=== PATIENT | male | born 1950 | race Caucasian/White ===

== ENCOUNTER 2021-09-20 12:28 | Emergency (ER) | payer MEDICARE, MEDICAID, SELFPAY ==
[2021-09-20] VITALS (44 sets, daily range): BP systolic 114–160; BP diastolic 65–79; PULSE 85; RESP 16; TEMP 36.9; O2SAT 97–100
--- NOTE | 2021-09-20 12:40 | W.ED.GENADLT ---
HPI - General Adult General: Chief complaint: General Medical Stated complaint: losing blood, sent by Dr Mustafa Seen by Provider: 09/20/21 12:39 History of Present Illness: HPI narrative: Mr. Qureshi is a 71-year-old gentleman with history of hypertension, COPD, and somewhat unclear vascular procedure who presents to the emergency department due to abnormal lab. He was seen by Dr. Guajardo who is his primary care provider and had labs drawn which showed a low hemoglobin. He denies known blood loss. He has noticed over the past 3 to 4 weeks increase shortness of breath from baseline, mild to moderate lightheadedness exacerbated by position change. And generalized malaise. He denies similar episodes in the past. No dark tarry stools. No other known specific exacerbating or alleviating factors Review of Systems General: Reports: 10 or more systems reviewed and unremarkable except in HPI and below Physical Exam Narrative: EXAM NARRATIVE: GENERAL/CONSTITUTIONAL - well-appearing. No acute distress. Eyes -no scleral icterus, no conjunctival injection ENMT - Atraumatic external nose and ears. Moist mucous membranes NECK - supple. trachea midline CARDIOVASCULAR - regular rate and rhythm. Peripheral pulses 2+ and equal RESPIRATORY -clear to auscultation bilaterally. ABDOMEN/GI - Nontender/Nondistended. Guaiac negative. MSK - Extremities without obvious deformity or tenderness to palpation SKIN - Warm, Dry NEURO - alert and appropriately oriented. Moves all extremities equally. Course ED course: - Patient was seen and evaluated by me at bedside - Patient placed on cardiac monitors, IV access obtained - Initial evaluation notable for no acute distress, nontoxic appearance. - Labs notable for minimal leukocytosis, hemoglobin normocytic at 8.1. Creatinine is elevated at 2.4 - Imaging notable for negative chest x-ray -I attempted to contact Dr. Guajardo however was unable to get a hold of him, per Dr. Guajardo's nurse patient's last labs were in October 2019, hemoglobin 17, creatinine 1.18. - Upon serial reexamination after treatment the patient was similar - Based on patient history, evaluation, labs, and imaging as interpreted the most likely cause of the patient's condition is unclear. Challenging situation given interpretation of lab values. Certainly the change from 2019 is concerning however the timeline of changes unclear. Guaiac study is negative and patient is not tachycardic or vitally unstable. I offered admission for further evaluation however the patient declined admission and wishes to follow-up with his primary care provider. Based on my interaction with the patient he is competent to make his own medical decisions. This is probably a reasonable decision as I see no source of bleeding and, as stated, the chronicity is unclear. No indication for transfusion at this time. - The results of ED evaluation were discussed with the patient including shared decision-making. followup plan and return precautions discussed. The patient verbalized understanding and felt safe for discharge. - Patient discharged in satisfactory condition. Vital Signs: Vital signs: Vital Signs Temperature 98.5 F 09/20/21 12:35 Pulse Rate 85 09/20/21 12:35 Respiratory Rate 16 09/20/21 12:35 Blood Pressure 137/72 09/20/21 16:30 Pulse Oximetry 99 09/20/21 16:20 MDM - General Adult Medical Records: Attestation: I reviewed the patient's medical records. Lab Data: Attestation: I reviewed the patient's lab results. Labs: Lab Results 09/20/21 09/20/21 09/20/21 12:55 12:55 12:55 WBC 10.1 10^3/uL H 10 ^3/uL (4.0-10.0) RBC 3.02 10^6/uL L 10 ^6/uL (4.1-5.3) Hgb 8.1 g/dL L g/dL (11.7-16.6) Hct 25.9 % L % (42.0-52.0) MCV 85.8 fl fl (80-94) MCH 26.8 pg L pg (28.0-34.0) MCHC 31.3 g/dL g/dL (30.0-36.0) RDW 14.7 % % (12.1-15.1) Plt Count 251 10^3/cmm 10^3 /cmm (130-400) MPV 12.2 fL H fL (7.4-10.4) Neut % (Auto) 63.9 % % Lymph % (Auto) 20.4 % % [place] % (Auto) 8.8 % % Eos % (Auto) 6.0 % % Baso % (Auto) 0.4 % % Neut # (Auto) 6.44 10^3/uL 10^3 /uL (1.8-7.7) Lymph # (Auto) 2.1 10^3/uL 10^3/ uL (0.8-4.8) [place] # (Auto) 0.9 10^3/uL 10^3/ uL (0.2-0.9) Eos # (Auto) 0.6 10^3/uL 10^3/ uL (0.0-0.8) Baso # (Auto) 0.0 10^3/uL 10^3/ uL (0.0-0.1) Nucleated RBC % (a uto) 0 % % Nucleated RBCs # 0.0 /100WBC /100W BC Sodium 132 mmol/L L mmol /L (136-145) Potassium 4.2 mmol/L mmol/L (3.5-5.1) Chloride 100 mmol/L mmol/L (98-107) Carbon Dioxide 22 mmol/L mmol/L (22-29) Anion Gap 14.2 (5-19) BUN 31 mg/dL H mg/dL (8-23) Creatinine 2.4 mg/dL H mg/dL (0.7-1.2) GFR Calculation Not Reportable Glucose 119 mg/dL H mg/dL (65-115) Calculated Osmolal ity 282 mOsm/kg L mOs m/kg (285-295) Calcium 9.4 mg/dL mg/dL (8.5-10.5) Iron TIBC % Saturation Unsat Iron Binding Transferrin Ferritin Total Bilirubin 0.2 mg/dL mg/dL (0.15-1.2) AST 16 U/L U/L (0-40) ALT 9 U/L U/L (0-41) Alkaline Phosphata se 87 IU/L IU/L (40-130) Troponin T Baselin e 30 ng/L H ng/L (0-15) Troponin T 120 Min [place] Troponin T NT-Pro-B Natriuret Pep 669 pg/mL H pg/mL (0-125) Total Protein 6.9 g/dL g/dL (6.6-8.7) Albumin 3.6 g/dL g/dL (3.5-5.2) Globulin 3.3 g/dL g/dL (1.3-4.6) TSH 3.26 uIU/mL uIU/m L (0.27-4.20) Urine Color Urine Appearance Urine pH Ur Specific Gravit y Urine Protein Urine Glucose (UA) Urine Ketones Urine Blood Urine Nitrate Urine Bilirubin Urine Urobilinogen Ur Leukocyte Edepa ase Urine RBC Urine WBC Ur Squamous Epith Cells Amorphous Sediment Urine Bacteria Blood Type Rho(D) Type Antibody Screen 09/20/21 09/20/21 09/20/21 12:55 12:55 13:59 WBC RBC Hgb Hct MCV MCH MCHC RDW Plt Count MPV Neut % (Auto) Lymph % (Auto) [place] % (Auto) Eos % (Auto) Baso % (Auto) Neut # (Auto) Lymph # (Auto) [place] # (Auto) Eos # (Auto) Baso # (Auto) Nucleated RBC % (a uto) Nucleated RBCs # Sodium Potassium Chloride Carbon Dioxide Anion Gap BUN Creatinine GFR Calculation Glucose Calculated Osmolal ity Calcium Iron 27 ug/dL L ug/dL (59-158) TIBC 294 mcg/dl mcg/dl % Saturation 9.1 % L % (20-50) Unsat Iron Binding 267 ug/dL ug/dL (112-347) Transferrin 227 mg/dL mg/dL (200-360) Ferritin 22 ng/mL L ng/mL (30-400) Total Bilirubin AST ALT Alkaline Phosphata se Troponin T Baselin e Troponin T 120 Min [place] Troponin T NT-Pro-B Natriuret Pep Total Protein Albumin Globulin TSH Urine Color Yellow (Yellow) Urine Appearance Clear (CLEAR) Urine pH 7 (5-7) Ur Specific Gravit y 1.010 (1.005-1.030) Urine Protein 3+ H (Negative) Urine Glucose (UA) Trace H (Normal) Urine Ketones Negative (Negative) Urine Blood Neg (Negative) Urine Nitrate Negative (Negative) Urine Bilirubin Neg (Negative) Urine Urobilinogen Norm mg/dL mg/dL (Negative) Ur Leukocyte Deepa ase Negative (Negative) Urine RBC 0-4 /hpf H /hpf (0-2) Urine WBC 0-4 /hpf H /hpf (0-5) Ur Squamous Epith Cells 0-4 /hpf H /hpf (0-5) Amorphous Sediment Not Reportable Urine Bacteria Trace /hpf /hpf (NONE) Blood Type O Positive Rho(D) Type Positive Antibody Screen Negative 09/20/21 15:00 WBC RBC Hgb Hct MCV MCH MCHC RDW Plt Count MPV Neut % (Auto) Lymph % (Auto) [place] % (Auto) Eos % (Auto) Baso % (Auto) Neut # (Auto) Lymph # (Auto) [place] # (Auto) Eos # (Auto) Baso # (Auto) Nucleated RBC % (a uto) Nucleated RBCs # Sodium Potassium Chloride Carbon Dioxide Anion Gap BUN Creatinine GFR Calculation Glucose Calculated Osmolal ity Calcium Iron TIBC % Saturation Unsat Iron Binding Transferrin Ferritin Total Bilirubin AST ALT Alkaline Phosphata se Troponin T Baselin e Troponin T 120 Min [place] 28.80 ng/L H ng/L (0-15) Delta Troponin T -1.20 ABS# L ABS# (0-10) NT-Pro-B Natriuret Pep Total Protein Albumin Globulin TSH Urine Color Urine Appearance Urine pH Ur Specific Gravit y Urine Protein Urine Glucose (UA) Urine Ketones Urine Blood Urine Nitrate Urine Bilirubin Urine Urobilinogen Ur Leukocyte Deepa ase Urine RBC Urine WBC Ur Squamous Epith Cells Amorphous Sediment Urine Bacteria Blood Type Rho(D) Type Antibody Screen EKG Data^: EKG 1: Attestation: I personally reviewed and interpreted this EKG as follows: EKG interpretation date: 09/20/21 EKG interpretation time: 13:12 Interpretation: Twelve-lead EKG shows a regular rhythm at a rate of 78. SC interval 151, QRS duration 92, QTc 399. Normal axis. Interpretation: Sinus rhythm. Nonspecific ST segment abnormalities. Computer generated interpretation: Chest X-Ray 09/20/21 12:52 Impression: Atherosclerosis. EKG 2: Attestation: I personally reviewed and interpreted this EKG as follows: EKG interpretation date: 09/20/21 EKG interpretation time: 15:09 Interpretation: Twelve-lead EKG shows a regular rhythm at a rate of 79. SC interval 131, QRS duration 98, QTc 398. Normal axis. Interpretation: Sinus rhythm. Nonspecific ST segment abnormalities. Similar to prior. Computer generated interpretation: Chest X-Ray 09/20/21 12:52 Impression: Atherosclerosis. Discharge Plan Discharge Patient Disposition: Home Clinical Impression: Anemia, Creatinine elevation Condition: Fair Prescriptions: No Action multivitamin Tablet 1 tab PO DAILY RF: 0 magnesium 500 mg Tablet 500 mg PO QAM RF: 0 amlodipine 5 mg tablet 5 mg PO QAM RF: 0 Aspir-81 81 mg Tablet,Delayed Release (Dr/Ec) 81 mg PO QAM RF: 0 Ventolin HFA 90 mcg/actuation HFA aerosol inhaler 2 puff INHALATION Q4H PRN (Reason: Shortness Of Breath) RF: 0 valsartan-hydrochlorothiazide 320-25 mg tablet 1 tab PO QAM RF: 0 Breo Ellipta 200-25 mcg/dose blister with device 1 inh INHALATION QAM RF: 0 Discharge Orders: Discharge ED (Routine); Ordered 09/20/21 Ordered By: Antony Chaudhari Discharge Diet: Usual diet Discharge Activity: Resume usual activity Patient Instructions: Anemia (ED), Impaired Kidney Function (ED) Activity Restrictions/Additional Instructions: Thank you for visiting the emergency department. You were seen and evaluated for abnormal labs. The exact cause of abnormal labs is unclear as is exactly how quickly they have changed. As discussed, the safest option is to admit you however you are declining admission at this time, please follow-up with your primary care provider as soon as possible. You do require further investigation regarding kidney function and cause of your anemia. Please return to the emergency department for worsening symptoms, decreased urine output, shortness of breath, chest pain, or anything else that you are concerned about and feel needs emergency department evaluation. 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
--- NOTE | 2021-09-20 12:52 | XR_ITS ---
WS: [id number] Portable AP upright chest, 09/20/2021 Clinical Data: sob Comparison: PA and lateral chest, 05/18/2015. Findings: No nodules, masses or effusions are seen. The heart is normal. The pulmonary vascularity is not increased. No pneumonia or pneumothorax is seen. The aortic arch and descending thoracic aorta s how tortuosity. XR/XR chest 1V portable [id number] Impression: Atherosclerosis.
[2021-09-20 13:06] LABS: Basophils % 0.4 %; Eosinophils # 0.6 10^3/uL (0.0-0.8); Hematocrit 25.9 % (42.0-52.0); Hemoglobin 8.1 g/dL (11.7-16.6); Lymphocytes # 2.1 10^3/uL (0.8-4.8); Lymphocytes % 20.4 %; Mean Corpuscular HGB Conc 31.3 g/dL (30.0-36.0); Mean Corpuscular Hemoglobin 26.8 pg (28.0-34.0); Mean Corpuscular Volume 85.8 fl (80-94); Mean Platelet Volume 12.2 fL (7.4-10.4); Monocytes # 0.9 10^3/uL (0.2-0.9); Monocytes % 8.8 %; Neutrophils # 6.44 10^3/uL (1.8-7.7); Neutrophils % 63.9 %; Nucleated Red Blood Cells % 0 %; Platelet Count 251 10^3/cmm (130-400); Red Blood Count 3.02 10^6/uL (4.1-5.3); Red Cell Distribution Width 14.7 % (12.1-15.1); White Blood Count 10.1 10^3/uL (4.0-10.0)
[2021-09-20 13:29] LABS: Troponin(5th) Baseline 30 ng/L (0-15)
[2021-09-20 13:36] LABS: Alanine Aminotransferase 9 U/L (0-41); Albumin Level 3.6 g/dL (3.5-5.2); Alkaline Phosphatase 87 IU/L (40-130); Aspartate Amino Transferase 16 U/L (0-40); Blood Urea Nitrogen 31 mg/dL (8-23); Calcium 9.4 mg/dL (8.5-10.5); Carbon Dioxide 22 mmol/L (22-29); Chloride 100 mmol/L (98-107); Globulin 3.3 g/dL (1.3-4.6); Glucose 119 mg/dL (65-115); NT Pro B Type Natriuretic Pept 669 pg/mL (0-125); Osmolality Calculated 282 mOsm/kg (285-295); Sodium 132 mmol/L (136-145); Thyroid Stimulating Hormone 3.26 uIU/mL (0.27-4.20); Total Bilirubin 0.2 mg/dL (0.15-1.2); Total Protein 6.9 g/dL (6.6-8.7)
[2021-09-20 13:38] LABS: Anion Gap 14.2 (5-19); Potassium 4.2 mmol/L (3.5-5.1)
[2021-09-20 14:23] LABS: Add Urine Microscopic? YES; Bilirubin Urine Neg (Negative); Blood Urine Neg (Negative); Glucose Urine UA Trace (Normal); Ketones Urine Negative (Negative); Leukocyte Esterase Urine Negative (Negative); Nitrate Urine Negative (Negative); Protein Urine 3+ (Negative); Urine Appearance Clear (CLEAR); Urine Color Yellow (Yellow); Urobilinogen Urine Norm (Negative); pH Urine 7 (5-7)
[2021-09-20 14:24] LABS: Add Urine Culture? No; Bacteria Urine TRACE /hpf; RBC Urine 0-4 /hpf (0-2); Squamous Epithelial Cell Urine 0-4 /hpf (0-5); WBC Urine 0-4 /hpf (0-5)
--- NOTE | 2021-09-20 14:52 | ECG_ITS ---
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
[2021-09-20 16:02] LABS: Ferritin 22 ng/mL (30-400); Iron 27 ug/dL (59-158); Percent Saturation 9.1 % (20-50); Total Iron Binding Capacity 294 mcg/dl; Transferrin 227 mg/dL (200-360); Unsaturated Iron Binding 267 ug/dL (112-347)
--- NOTE | 2021-09-20 18:52 | ECG_ITS ---
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 Measurements Intervals [place] Rate: 79 P: 32 [place]: 131 QRS: 56 QRSD: 98 T: 88 QT: 363 QTc: 418 Interpretive Statements SINUS RHYTHM LEFT VENTRICULAR HYPERTROPHY AND ST-T CHANGE [VOLTAGE CRITERIA PLUS ST/T ABNORMALITY] Compared to ECG 09/20/2021 13:10:49 No significant changes Electronically Signed On 09-21-2021 22:50:54 CDT by Colby Spencer M.D. [id number]
== END 2021-09-20 16:37 | disposition home or self-care (01) ==
PROVIDERS: Emergency Provider Emergency Medicine
DX: D64.9 Anemia, unspecified (principal); R79.89 Other specified abnormal findings of blood chemistry; Z79.82 Long term (current) use of aspirin
CPT/HCPCS: 71045; 80053; 81001; 82728; 83540; 83550; 83880; 84443; 84466; 84484; 85025; 86850; 86900; 93005; 99284

== ENCOUNTER 2022-06-28 10:16 | Inpatient (IN) | payer MEDICARE, MEDICAID, SELFPAY ==
[2022-06-28] VITALS (21 sets, daily range): BP systolic 102–164; BP diastolic 60–82; PULSE 70–86; RESP 16–19; TEMP 36.7–36.8; O2SAT 92–100; BMI 23.7
--- NOTE | 2022-06-28 11:31 | W.ED.GENADLT ---
HPI - General Adult General: Chief complaint: Recheck/Abnormal Lab/Rx Stated complaint: Loss of blood Time Seen by Provider: 06/28/22 11:29 History of Present Illness: Patient is a 72-year-old male with a history of COPD, HTN smoking presenting to the emergency room with concerns of anemia. Patient had routine blood work done last week. Patient was called yesterday for concerns of anemia and possible need for transfusion. Patient was then told to come to the emergency room. Patient has had intermittent midepigastric abdominal pain for the last few month. Patient denies any melena/hematochezia. Patient denies any hemoptysis or hematuria. Patient denies any nausea/vomiting, diarrhea, fever/chills, cough, runny nose sore throat. Onset:unknown Duration:ongoing Location:home Severity:moderate Associated symptoms: Deny chest pain, dyspnea, nausea, rash, palpitations or vomiting Review of Systems Const: Denies: fever(s) or chills Eyes: Denies: change in vision ENMT: Denies: mouth pain Card: Denies: chest pain or palpitations Resp: Denies: dyspnea or non-productive cough GI: Denies: abdominal pain, nausea, vomiting or diarrhea : Denies: dysuria Musc: Denies: extremity pain Skin/Breast: Denies: rash or new lesions Neuro: Denies: weakness in extremities Psych: Reports: other (Normal mood) Elmer/Lymph: Denies: easy bruising PFS ED PFSH: Medical History Benign hypertension COPD (chronic obstructive pulmonary disease) Hypertension Surgical History History of abdominal aortic aneurysm repair Family History Father Hypertension Mother Hypertension Social History Smoking and tobacco status: current every day smoker Alcohol intake: former Physical Exam Const: COMMON NORMALS: alert HENMT: COMMON NORMALS: atraumatic HEAD & SCALP: atraumatic MOUTH: moist mucous membranes not abnormal Eye: COMMON NORMALS: EOMs intact bilaterally and conjunctivae normal CONJUNCTIVA: Yes conjunctivae normal Neck/C-Spine: COMMON NORMALS: full ROM and supple Resp: COMMON NORMALS: normal respiratory effort and clear to auscultation bilaterally AUSCULTATION: clear to auscultation bilaterally Cardio: COMMON NORMALS: regular rate RATE: regular rate GI: COMMON NORMALS: Soft to palpation and non-tender PALPATION: Yes Soft to palpation Extremity: COMMON NORMALS: full ROM Neuro: SENSORIUM/ORIENTATION: Yes alert MOTOR EXAM: No Abnormal motor strength present and Other motor observations present (no focal motor deficits) Psych: COMMON NORMALS: speech normal SPEECH: Yes normal speech MOOD & AFFECT: Yes euthymic mood Course Vital Signs: Vital signs: Vital Signs Temperature 98.1 F 06/30/22 04:00 Pulse Rate 74 06/30/22 10:55 Respiratory Rate 18 06/30/22 10:55 Blood Pressure 152/81 06/30/22 07:26 Pulse Oximetry 98 06/30/22 10:55 Oxygen Delivery Me thod 06/30/22 08:00 Oxygen Flow Rate 94 06/29/22 23:47 MDM - General Adult Medical Decision Making 72-year-old male with a history of COPD, hypertension, smoking presenting to the emergency room with concerns of anemia for routine blood work. Patient is no focal complaints. Exam is unremarkable. Hemoglobin 6.2 today compared to baseline of 8.2 from 1 years ago. Patient received 2 units of blood transfusion. Given the fact the patient had a hemoglobin 8.2 from a year ago, this is unlikely to be acute GI bleed. Rectal exam is negative for any Hemoccult negative blood or melena. I discussed case with Dr. Andrew who will follow patient to decide whether to perform an EGD. Has a troponin of 128 today. EKG is nonischemic. Patient has no complaints of chest pain. Because patient has an elevated troponin in setting of creatinine elevation, this is possibly NSTEMI versus demand ischemia. Patient received aspirin. Given the fact the patient is low hemoglobin, defer to the inpatient team to start patient on Lovenox if they think this is NSTEMI. Disposition: admission Lab Data : 06/30/22 04:02 06/30/22 04:02 Radiology Impressions Chest X-Ray 06/28/22 14:49 IMPRESSION: 1. 3 cm focal density within the upper lobe of the right lung near the lateral pleural. This could represent focal pneumonia, or mass. This is a change since the previous study. 2. Pulmonary hyperinflation which might indicate COPD. KUB X-Ray 06/28/22 14:49 IMPRESSION: 1. No acute abdominal process. 2. Small calcifications noted over both kidneys that could represent renal stones. Additional nonacute minor findings as above. Chest/Abdomen/Pelvis CT 06/28/22 15:38 IMPRESSION: 1. Multiple spiculated nodules in the right upper lobe, the largest measuring 3.7 cm. Highly suspicious nodule(s). Consider non-emergent PET/CT, IMPRESSION: 1. Two hypodense nodules in the liver are suspicious for metastatic disease given the findings in the chest. 2. 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 3. Aortobifemoral arterial graft. Laboratory Results WBC 10.1 10^3/uL (4.0-10.0) H 06/28/22 11:25 RBC 2.11 10^6/uL (4.1-5.3) L 06/28/22 11:25 Hgb 6.2 g/dL (11.7-16.6) L* 06/28/22 11:25 Hct 20.3 % (42.0-52.0) L* 06/28/22 11:25 MCV 96.2 fl (80-94) H 06/28/22 11:25 MCH 29.4 pg (28.0-34.0) 06/28/22 11:25 MCHC 30.5 g/dL (30.0-36.0) 06/28/22 11:25 RDW 18.9 % (12.1-15.1) H 06/28/22 11:25 Plt Count 367 10^3/cmm (130-400) 06/28/22 11:25 MPV 12.4 fL (7.4-10.4) H 06/28/22 11:25 Neut % (Auto) 77.2 % 06/28/22 11:25 Lymph % (Auto) 12.5 % 06/28/22 11:25 [place] % (Auto) 7.2 % 06/28/22 11:25 Eos % (Auto) 2.4 % 06/28/22 11:25 Baso % (Auto) 0.2 % 06/28/22 11:25 Reticulocyte % (Auto) 10.1 % (0.5-2.0) H 06/28/22 11:25 Neut # (Auto) 7.81 10^3/uL (1.8-7.7) H 06/28/22 11:25 Lymph # (Auto) 1.3 10^3/uL (0.8-4.8) 06/28/22 11:25 [place] # (Auto) 0.7 10^3/uL (0.2-0.9) 06/28/22 11:25 Eos # (Auto) 0.2 10^3/uL (0.0-0.8) 06/28/22 11:25 Baso # (Auto) 0.0 10^3/uL (0.0-0.1) 06/28/22 11:25 Nucleated RBC % (auto) 0 % 06/28/22 11:25 Nucleated RBCs # 0.0 /100WBC 06/28/22 11:25 PT 13.60 SECONDS (12.1-14.9) 06/28/22 11:25 INR 1.01 (0.8-1.2) 06/28/22 11:25 APTT 31.4 SECONDS (23.9-36.7) 06/28/22 11:25 Sodium 135 mmol/L (136-145) L 06/28/22 14:27 Potassium 3.3 mmol/L (3.5-5.1) L 06/28/22 14:27 Chloride 101 mmol/L (98-107) 06/28/22 14:27 Carbon Dioxide 23 mmol/L (22-29) 06/28/22 14:27 Anion Gap 14.3 (5-19) 06/28/22 14:27 BUN 23 mg/dL (8-23) 06/28/22 14:27 Creatinine 2.3 mg/dL (0.7-1.2) H 06/28/22 14:27 GFR Calculation Not Reportable 06/28/22 14:27 Glucose 111 mg/dL (65-115) 06/28/22 14:27 Calculated Osmolality 284 mOsm/kg (285-295) L 06/28/22 14:27 Calcium 8.5 mg/dL (8.5-10.5) 06/28/22 14:27 Iron 66 ug/dL (59-158) 06/28/22 14:27 Ferritin 59 ng/mL (30-400) 06/28/22 14:27 Total Bilirubin 0.2 mg/dL (0.15-1.2) 06/28/22 14:27 GGT 16 U/L (8-61) 06/28/22 14:27 AST 10 U/L (0-40) 06/28/22 14:27 ALT 6 U/L (0-41) 06/28/22 14:27 Alkaline Phosphatase 100 IU/L (40-130) 06/28/22 14:27 Lactate Dehydrogenase 206 U/L (135-225) 06/28/22 14:27 Troponin T Gen 5 ng/L 128 ng/L (0-15) H* 06/28/22 11:25 Troponin T Baseline 128 ng/L (0-15) H* 06/28/22 11:25 NT-Pro-B Natriuret Pep 18194 pg/mL (0-125) H 06/28/22 14:27 Total Protein 5.7 g/dL (6.6-8.7) L 06/28/22 14:27 Albumin 2.7 g/dL (3.5-5.2) L 06/28/22 14:27 Globulin 3.0 g/dL (1.3-4.6) 06/28/22 14:27 Lipase 32 U/L (13-60) 06/28/22 14:27 Vitamin B12 910 pg/mL (232-1245) 06/28/22 14:27 TSH 3.07 uIU/mL (0.27-4.20) 06/28/22 14:27 Blood Type O Positive 06/28/22 11:25 Rho(D) Type Positive 06/28/22 11:25 Antibody Screen Negative 06/28/22 11:25 Crossmatch See Detail 06/28/22 11:25 Discharge Plan Discharge Patient Disposition: Admitted As Inpatient Admit Provider: Bharat Carter Clinical Impression: Anemia, Non-ST elevation [place] (NSTEMI) Condition: Stable Discharge Diet: Advance as tolerated Discharge Activity: Increase activity as tolerated Coding Level of Care Code ED Distributor Cleaner for g Fwd Exam Comprehensive
[2022-06-28 11:39] LABS: Basophils % 0.2 %; Eosinophils # 0.2 10^3/uL (0.0-0.8); Eosinophils % 2.4 %; Lymphocytes # 1.3 10^3/uL (0.8-4.8); Lymphocytes % 12.5 %; Mean Corpuscular HGB Conc 30.5 g/dL (30.0-36.0); Mean Corpuscular Hemoglobin 29.4 pg (28.0-34.0); Mean Corpuscular Volume 96.2 fl (80-94); Mean Platelet Volume 12.4 fL (7.4-10.4); Monocytes # 0.7 10^3/uL (0.2-0.9); Monocytes % 7.2 %; Neutrophils # 7.81 10^3/uL (1.8-7.7); Neutrophils % 77.2 %; Nucleated Red Blood Cells % 0 %; Platelet Count 367 10^3/cmm (130-400); Red Blood Count 2.11 10^6/uL (4.1-5.3); Red Cell Distribution Width 18.9 % (12.1-15.1); White Blood Count 10.1 10^3/uL (4.0-10.0)
[2022-06-28 11:44] LABS: Hematocrit 20.3 % (42.0-52.0); Hemoglobin 6.2 g/dL (11.7-16.6)
--- NOTE | 2022-06-28 11:48 | PC.NURSE ---
Critical hemoglobin of 6.2. Dr Reed notified.
[2022-06-28 12:07] LABS: INR 1.01 (0.8-1.2)
[2022-06-28 12:08] LABS: Partial Thromboplastin Time 31.4 SECONDS (23.9-36.7)
--- NOTE | 2022-06-28 13:17 | ECG_ITS ---
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 Measurements Intervals [place] Rate: 81 P: 41 SD: 137 QRS: 53 QRSD: 100 T: 74 QT: 387 QTc: 450 Interpretive Statements SINUS RHYTHM WITH MARKED SINUS ARRHYTHMIA LEFT VENTRICULAR HYPERTROPHY AND ST-T CHANGE [VOLTAGE CRITERIA PLUS ST/T ABNORMALITY] Compared to ECG 09/20/2021 15:05:52 No significant changes Electronically Signed On 06-28-2022 15:09:51 CDT by Maria R Butler M.D. [id number]
[2022-06-28] MEDS: sodium chloride 0.9% 100 mL Bag 50 ML IV (13:45)
[2022-06-28 14:00] LABS: Troponin T (5th) Once 128 ng/L (0-15)
--- NOTE | 2022-06-28 14:13 | PC.NURSE ---
NOTIFIED DR. GALLEGOS OF BASELINE TROPONIN OF 128 HE VERBALIZED UNDERSTANDING NO FURTHER ORDERS.
--- NOTE | 2022-06-28 14:49 | XR_ITS ---
WS: [id number] Exam: XR KUB portable [id number] Date/Time of Exam: 06/28/2022 2:49 PM Reason For Exam: abodminal pain No bowel obstruction or free air. No sign of organ enlargement. Small calcifications noted in the reg ion of the kidneys that may represent renal calculi. Aortoiliac atherosclerosis. Surgical clips seen in both inguinal areas. Degenerative changes of the lumbar spine and spondylosis. XR/XR KUB portable [id number] IMPRESSION: 1. No acute abdominal process. 2. Small calcifications noted over both kidneys that could represent renal ston es. Additional nonacute minor findings as above.
--- NOTE | 2022-06-28 14:49 | XR_ITS ---
WS: [id number] Exam: XR chest 1V portable [id number] Date/Time of Exam: 06/28/2022 2:49 PM Reason For Exam: nstemi Comparison 09/20/2021. 3 cm soft tissue density seen in the upper lobe of the right lung with associated infiltrate. Remaini ng lung braun are clear. The heart is not enlarged for technique. The mediastinum is normal in conto ur. No pleural effusions. No pneumothorax. Several old left-sided rib fractures. Recommendations: Contrast CT scanning of the chest recommended for further workup. XR/XR chest 1V portable [id number] IMPRESSION: 1. 3 cm focal density within the upper lobe of the right lung near the lateral pleural. This could represent focal pneumonia, or mass. This is a change since the previous study. 2. Pulmonary hyperinflation which might indicate COPD.
[2022-06-28 15:11] LABS: Reticulocyte % 10.1 % (0.5-2.0)
[2022-06-28] MEDS: sucralfate 1 gm Tablet PO ×2 (15:17→20:31)
[2022-06-28] MEDS: aspirin 325 mg EC Tablet PO (15:17)
[2022-06-28 15:18] LABS: Alanine Aminotransferase 6 U/L (0-41); Albumin Level 2.7 g/dL (3.5-5.2); Alkaline Phosphatase 100 IU/L (40-130); Anion Gap 14.3 (5-19); Aspartate Amino Transferase 10 U/L (0-40); Blood Urea Nitrogen 23 mg/dL (8-23); Calcium 8.5 mg/dL (8.5-10.5); Carbon Dioxide 23 mmol/L (22-29); Chloride 101 mmol/L (98-107); Glucose 111 mg/dL (65-115); Osmolality Calculated 284 mOsm/kg (285-295); Potassium 3.3 mmol/L (3.5-5.1); Sodium 135 mmol/L (136-145); Total Bilirubin 0.2 mg/dL (0.15-1.2); Total Protein 5.7 g/dL (6.6-8.7)
[2022-06-28] MEDS: pantoprazole 40 mg SDV 80 MG IVP (15:18)
--- NOTE | 2022-06-28 15:35 | PM.HP ---
Providers/Chief Complaint Chief Complaint: Loss of blood History of Present Illness Dave Qureshi is a 72 year old male with a past medical history of hypertension, COPD, current smoker, who presents [facility] due to fatigue, malaise, lightheadedness. Patient tells me that he saw his outpatient physician for fatigue, malaise, lightheadedness, weakness, they did blood work and they told him to come to the emergency room. He denies any cardiovascular history, no history of stenting, history of CHF, no history of chest pain, denies any current chest pain. Denies a history of strokes. Denies a history of CHF. Does report a history of COPD, is a active smoker. Denies a history of diabetes. No history of liver problems, he did drink alcohol but he quit for the last year. He denies a history of anemia, is on iron, no history of bloody or black stools, does report lightheaded, dizziness, no history of EGD, no history of colonoscopy, does report increased lightheadedness, no syncopal episodes, dizziness, unsteadiness and weakness. Denies a history of transfusions in the past. In the emergency room he was found to have a hemoglobin of 6.2, Hemoccult stool was negative, his troponin was 128, no acute ST-T wave changes, has been given aspirin 325. I was asked to evaluate patient, currently denying any bloody or black stools, no hemoptysis, no hematemesis, no chest pain. He does report nonspecific abdominal pain around his umbilicus, where he had his abdominal aortic aneurysm repair Review of Systems Const: Reports: fatigue and malaise; Denies: fever(s) or night sweats Eyes: Denies: change in vision Card: Reports: lightheadedness; Denies: chest pain, palpitations, syncope or dyspnea on exertion Resp: Denies: dyspnea or non-productive cough GI: Reports: abdominal pain; Denies: nausea or vomiting : Denies: flank pain or difficulty urinating Musc: Denies: back pain Skin/Breast: Denies: rash Neuro: Denies: headache(s) Medications/Allergies Home Medications Medication Instructions Recorded Confirmed Last Taken Type albuterol sulfate 90 mcg/actuation 2 puff inhalation Q4H PRN 09/20/21 06/28/22 Unknown History aerosol inhaler (Ventolin HFA) Shortness Of Breath amlodipine 5 mg tablet 5 mg PO QAM 09/20/21 06/28/22 06/28/22 History fluticasone furoate 200 1 inh inhalation QAM 09/20/21 06/28/22 06/28/22 History mcg-vilanterol 25 mcg/dose inhalation powder (Breo Ellipta) valsartan 320 1 tab PO QAM 09/20/21 06/28/22 06/28/22 History mg-hydrochlorothiazide 25 mg tablet ferrous sulfate 325 mg (65 mg 325 mg PO DAILY 06/13/22 06/28/22 06/28/22 History iron) tablet aspirin 81 mg tablet,delayed 81 mg PO DAILY 06/28/22 06/28/22 06/28/22 History release esomeprazole magnesium 40 mg 40 mg PO DAILY 06/28/22 06/28/22 06/28/22 History capsule,delayed release Allergies Allergy/AdvReac Type Severity Reaction Status Date / Time aspirin Allergy ADR-Vomitin Verified 06/28/22 14:40 g PFSH Acute PFSH: Medical History (Updated 06/28/22 @ 15:38 by Bharat Carter MD) Benign hypertension COPD (chronic obstructive pulmonary disease) Hypertension Surgical History (Updated 06/28/22 @ 15:38 by Bharat Carter MD) History of abdominal aortic aneurysm repair Family History Father Hypertension Mother Hypertension Social History (Updated 06/28/22 @ 15:38 by Bharat Carter MD) Smoking and tobacco status: current every day smoker Alcohol intake: former Substance/Drug Use: never Vitals/I&O/Wt Last Vital Signs Temp 98.1 F 06/28/22 13:47 Pulse 74 06/28/22 13:47 Resp 16 06/28/22 13:47 BP 143/68 06/28/22 13:47 Pulse Ox 94 06/28/22 13:47 O2 Del Method 06/28/22 11:37 06/28/22 06/28/22 06/28/22 06:59 14:59 22:59 Intake Total 0 / 0 Balance 0 / 0 Weight last 48 hrs Weight 77.111 kg Physical Exam Const: COMMON NORMALS: no acute distress and patient oriented x3 HENMT: COMMON NORMALS: normocephalic HEAD & SCALP: normocephalic Eye: COMMON NORMALS: Equal, round and reactive pupils present and EOMs intact bilaterally Neck/C-Spine: COMMON NORMALS: no JVD Lymph: LYMPHATIC: no lymphadenopathy noted Resp: COMMON NORMALS: normal respiratory effort, No retractions, No use of accessory muscles and clear to auscultation bilaterally AUSCULTATION: wheezes Cardio: COMMON NORMALS: no JVD, regular rate, regular rhythm, S1 normal heart sound present and S2 normal heart sound present RATE: regular rate RHYTHM: regular rhythm HEART SOUNDS: S1 normal heart sound present and S2 normal heart sound present GI: COMMON NORMALS: Normal to inspection, nondistended, normoactive bowel sounds present, Soft to palpation, non-tender, No hepatosplenomegaly present, no masses and no bruits PALPATION: Yes Soft to palpation and Yes No hepatosplenomegaly present Extremity: COMMON NORMALS: capillary refill normal, no clubbing, cyanosis or edema, no calf tenderness and no pedal edema Neuro: COMMON NORMALS: patient oriented x3, CN's II-XII intact bilaterally, moves all extremities and no focal motor deficits Psych: COMMON NORMALS: mental status grossly normal Data : 06/28/22 11:25 06/28/22 14:27 A&P Assessment and plan (1) Anemia: Status: Acute (2) Non-ST elevation [place] (NSTEMI): Status: Acute Plan Acute on chronic anemia -Has evidence of anemia in the past hemoglobin 8.1 -No history of EGD, no history of colonoscopy, no history of transfusions, does take chronic iron -Likely GI bleed Plan -Currently no hemodynamic compromise monitor hemodynamics closely -Avoid anticoagulants -Status post 1 unit PRBC, currently receiving -Monitor hemoglobin thereafter -Monitor for bloody or black stools -Iron studies, B12, folate, Hemoccult stool -Protonix, Carafate -General surgery consulted for EGD -Given abdominal pain complaints, has a history of abdominal aortic aneurysm repair, will do CT scan abdomen pelvis NSTEMI -No cardiovascular history -Is a smoker -No chest pain complaints -Baseline troponin 128 -Serial EKGs, serial troponins, telemetry monitoring -Has received aspirin emergency room, statin, her old off and further aspirin given anemia -Monitor for chest pain -Etiology unclear, possibly type II NSTEMI related to supply demand ischemia related to anemia however cannot rule out underlying cardiac etiology given age, smoking history, might require stress test once anemia has been appropriately evaluated -Cardiac echo -DNR/DNI -SCDs for DVT prophylaxis Chest x-ray showing lung nodule, CT chest, does have wheezing on exam, DuoNeb Attestations Medical Necessity Statement*: Patient requires hospitalization, inpatient, greater than 2 midnights, for NSTEMI, anemia Coding Level of Care Code Acute Bed Control Specialist for [facility] Fwd Diagnoses Anemia D64.9 Non-ST elevation [place] (NSTEMI) I21.4
[2022-06-28 15:36] LABS: Ferritin 59 ng/mL (30-400); Gamma Glutamyl Transferase 16 U/L (8-61); Iron 66 ug/dL (59-158); Lactate Dehydrogenase 206 U/L (135-225); Lipase 32 U/L (13-60); NT Pro B Type Natriuretic Pept 11830 pg/mL (0-125); Thyroid Stimulating Hormone 3.07 uIU/mL (0.27-4.20); Vitamin B12 910 pg/mL (232-1245)
[2022-06-28 15:38] LABS: LAB Peripheral Smear Sent for Review
--- NOTE | 2022-06-28 15:38 | CTR_ITS ---
PROCEDURE INFORMATION: Exam: CT Chest Without Contrast; Diagnostic Exam date and time: 06/28/2022 4:23 PM Age: 72 years old Clinical indication: Mass, lump, or swelling in the chest; Prior surgery; Surgery date: 6+ months; Surgery type: Aaa; Patient HX: Gi bleed, rul mass, hgb 7.2 hct 23.3; Additional info: Gi bleed, gregorio mass TECHNIQUE: Imaging protocol: Diagnostic computed tomography of the chest without contrast. Radiation optimization: All CT scans at this facility use at least one of these dose optimization techniques: automated exposure control; mA and/or kV adjustment per patient size (includes targeted exams where dose is matched to clinical indication); or iterative reconstruction. COMPARISON: CR XR chest 1V portable [id number] 06/28/2022 3:02 PM RADIATION DOSE METRICS: Total DLP (mGy-cm): 557.95 FINDINGS: Lungs: Severe centrilobular emphysema. 3.7 cm spiculated mass in the peripheral right upper lobe. 1.7 cm spiculated right upper lobe nodule, series 4, image 24. 1.2 cm spiculated right upper lobe nodule, image 19. 4.0 x 1.1 cm pleural based lesion in the peripheral right upper lobe. There are thickened interlobular septa within the right upper lobe arising from these nodules. 5 mm right lower lobe nodule, image 28. 6 mm subpleural right lower lobe nodule, image 31. 8 mm and 12 mm left lower lobe nodules. 6 mm right lower lobe nodule. 12 mm subpleural left lower lobe nodule, image 52. 8 mm lingular nodule, image 37. 9 mm left lower lobe nodule, image 31. 8 mm left upper lobe nodule, image 29. 4 mm left upper lobe nodule, image 50 Pleural spaces: Small right pleural effusion. No pneumothorax. Heart: Coronary artery calcifications. The heart size is normal. Small pericardial effusion. Lymph nodes: Multiple enlarged middle mediastinal and right hilar lymph nodes, the largest measuring 1.9 cm in the pretracheal region. Calcified mediastinal and right hilar lymph nodes. Vasculature: Unremarkable. No aortic aneurysm. Bones/joints: Degenerative changes of the spine. No fracture or destructive lesion. Soft tissues: Unremarkable. or tissue sampling.(Reference: [place]) 2. Multiple additional bilateral pulmonary nodules, most likely metastatic disease. 3. Enlarged mediastinal and right hilar lymph nodes, most likely metastatic disease. 4. Interstitial thickening in the right upper lobe is suspicious for lymphangitic spread of cancer. 5. Small right pleural effusion, possibly malignant. References: Homer Awan et al. Guidelines for Management of Incidental Pulmonary Nodules Detected on CT Images: From the Fleischner Society 2017. Radiology. 2017;284(1):228-243. PROCEDURE INFORMATION: Exam: CT Abdomen And Pelvis Without Contrast Exam date and time: 06/28/2022 4:23 PM Age: 72 years old Clinical indication: Mass, lump, or swelling in the chest; Prior surgery; Surgery date: 6+ months; Surgery type: Aaa; Patient HX: Gi bleed, rul mass, hgb 7.2 hct 23.3; Additional info: Gi bleed, gregorio mass TECHNIQUE: Imaging protocol: Computed tomography of the abdomen and pelvis without contrast. Radiation optimization: All CT scans at this facility use at least one of these dose optimization techniques: automated exposure control; mA and/or kV adjustment per patient size (includes targeted exams where dose is matched to clinical indication); or iterative reconstruction. COMPARISON: CR XR KUB portable [id number] 06/28/2022 3:04 PM RADIATION DOSE METRICS: Total DLP (mGy-cm): 557.95 FINDINGS: Liver: 1.1 cm nodule in the dome of the right liver lobe. 1.1 cm nodule in the posterior right liver lobe. Gallbladder and bile ducts: Normal. No calcified stones. No ductal dilation. Pancreas: Normal. No ductal dilation. Spleen: Calcified granulomas in the spleen. Adrenal glands: Normal. No mass. Kidneys and ureters: Atrophic right kidney. Bilateral perinephric stranding. No calculus or hydronephrosis. Stomach and bowel: Diverticulosis of the colon. No diverticulitis. Appendix: The appendix is visualized and is normal. Intraperitoneal space: Unremarkable. No free air. No significant fluid collection. Vasculature: Bilateral renal artery calcifications. Diffuse arterial calcifications. Aortobifemoral arterial graft. 3.8 cm aneurysm within the [place] infrarenal abdominal aorta. 2.2 cm aneurysm in the right common iliac artery. Lymph nodes: Unremarkable. No enlarged lymph nodes. Urinary bladder: Unremarkable as visualized. Reproductive: Unremarkable as visualized. Bones/joints: Mild degenerative changes of the spine. No fracture or lytic lesion. Soft tissues: Postsurgical changes and clips in the groin regions. Anterior laparotomy scar. Mild body wall edema. CT/[place] [id number] IMPRESSION: 1. Multiple spiculated nodules in the right upper lobe, the largest measuring 3.7 cm. Highly suspicious nodule(s). Consider non-emergent PET/CT, IMPRESSION: 1. Two hypodense nodules in the liver are suspicious for metastatic disease given the findings in the chest. 2. 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 3. Aortobifemoral arterial graft.
[2022-06-28 15:41] LABS: Hematocrit 23.3 % (42.0-52.0); Hemoglobin 7.2 g/dL (11.7-16.6)
[2022-06-28 16:59] LABS: Folate Level 19.8 ng/mL (4.5-32.2)
[2022-06-28 17:07] LABS: Troponin(5th) Baseline 128 ng/L (0-15)
[2022-06-28 18:05] LABS: Troponin 5 2HR Delta 1.8 ABS# (0-10)
--- NOTE | 2022-06-28 18:06 | ECG_ITS ---
[facility] Test Date: 2022-06-28 Pat Name: Dave Qureshi Department: Room: 254 Gender: Male Registered Midwife: : 1950 Requested By: Bharat Carter Order Number: [id number] Rober MD: Felix Andrews M.D. Measurements Intervals Sentinel Rate: 87 P: 33 [place]: 120 QRS: 12 QRSD: 104 T: -3 QT: 365 QTc: 440 Interpretive Statements SINUS RHYTHM WITH SINUS ARRHYTHMIA POSSIBLE LEFT ATRIAL ENLARGEMENT [-0.1mV P-WAVE IN V1/V2] LEFT VENTRICULAR HYPERTROPHY AND ST-T CHANGE [VOLTAGE CRITERIA PLUS ST/T ABNORMALITY] Compared to ECG 06/28/2022 13:51:17 No significant changes Electronically Signed On 06-29-2022 11:59:36 CDT by Felix Andrews M.D. [id number]
[2022-06-28 18:10] LABS: Troponin 5 2HR 129.8 ng/L (0-15)
[2022-06-28] MEDS: dextrose 5%-sod chloride 0.9% 1,000 ML 75 ML IV (20:31)
[2022-06-28] MEDS: potassium chloride ER 20 mEq Tablet 40 MEQ PO (20:32)
[2022-06-28] MEDS: pantoprazole 40 mg SDV IVP (20:32)
--- NOTE | 2022-06-28 22:23 | PC.NURSE ---
1730: Report called to FELIPA Peralta on [employer]. First unit of blood finished and second unit to be completed on the floor.
[2022-06-28 22:29] LABS: Troponin 5 6HR 147.8 ng/L (0-15); Troponin 5 6HR Delta 19.8 ng/L (0-12)
--- NOTE | 2022-06-28 22:35 | ECG_ITS ---
[facility] Test Date: 2022-06-28 Pat Name: Dave Qureshi Department: Room: 254 Gender: Male Auto Rental Clerk: : 1950 Requested By: Bharat Carter Order Number: [id number] Rober MD: Felix Andrews M.D. Measurements Intervals Shannon Rate: 76 P: 30 OR: 136 QRS: 56 QRSD: 98 T: 75 QT: 377 QTc: 426 Interpretive Statements SINUS RHYTHM NONSPECIFIC ST & T-WAVE ABNORMALITY Compared to ECG 06/28/2022 18:06:20 T-wave abnormality now present Sinus arrhythmia no longer present Left ventricular hypertrophy no longer present ST (T wave) deviation no longer present Electronically Signed On 06-29-2022 12:00:25 CDT by Felix Andrews M.D. [id number]
[2022-06-29] VITALS (17 sets, daily range): BP systolic 121–168; BP diastolic 60–79; PULSE 72–81; RESP 14–20; TEMP 36.6–37.1; O2SAT 91–98
[2022-06-29] MEDS: ipratropium-albuterol 3 mL Neb INHALATION (01:17)
[2022-06-29 05:08] LABS: Basophils % 0.4 %; Eosinophils # 0.3 10^3/uL (0.0-0.8); Eosinophils % 3.3 %; Hematocrit 27.3 % (42.0-52.0); Hemoglobin 8.7 g/dL (11.7-16.6); Lymphocytes % 10.2 %; Mean Corpuscular HGB Conc 31.9 g/dL (30.0-36.0); Mean Corpuscular Hemoglobin 29.8 pg (28.0-34.0); Mean Corpuscular Volume 93.5 fl (80-94); Mean Platelet Volume 11.4 fL (7.4-10.4); Monocytes # 0.8 10^3/uL (0.2-0.9); Monocytes % 8.3 %; Neutrophils # 7.47 10^3/uL (1.8-7.7); Neutrophils % 77.4 %; Nucleated Red Blood Cells % 0 %; Platelet Count 340 10^3/cmm (130-400); Red Blood Count 2.92 10^6/uL (4.1-5.3); Red Cell Distribution Width 18.7 % (12.1-15.1); White Blood Count 9.7 10^3/uL (4.0-10.0)
[2022-06-29 05:41] LABS: Alanine Aminotransferase 6 U/L (0-41); Albumin Level 2.7 g/dL (3.5-5.2); Alkaline Phosphatase 101 IU/L (40-130); Anion Gap 13.6 (5-19); Aspartate Amino Transferase 12 U/L (0-40); Blood Urea Nitrogen 21 mg/dL (8-23); Calcium 8.7 mg/dL (8.5-10.5); Carbon Dioxide 23 mmol/L (22-29); Chloride 104 mmol/L (98-107); Globulin 2.9 g/dL (1.3-4.6); Glucose 104 mg/dL (65-115); Magnesium 1.9 mg/dL (1.7-2.3); Osmolality Calculated 287 mOsm/kg (285-295); Phosphorus 3.3 mg/dL (2.5-4.5); Potassium 3.6 mmol/L (3.5-5.1); Sodium 137 mmol/L (136-145); Total Bilirubin 0.5 mg/dL (0.15-1.2); Total Protein 5.6 g/dL (6.6-8.7)
[2022-06-29] MEDS: sucralfate 1 gm Tablet PO ×4 (06:24→20:57)
[2022-06-29] MEDS: pantoprazole 40 mg SDV IVP ×2 (08:15→20:57)
--- NOTE | 2022-06-29 10:10 | PM.CONSULT ---
Providers/Reason For Consult Consulting Physician/Specialty*: Dr. Jerry Andrew, DO/General surgery Reason for Consult*: Anemia, possible GI bleed Attending Physician: Bharat Carter MD History of Present Illness History of Present Illness Dave Qureshi is a 72 year old male who presented to his primary care physician's office with complaints of weakness and dizziness. He was found to have a hemoglobin of 6.2 and sent to the ER, where he was found to have an NSTEMI. Hemoccult was negative, patient denies any abdominal pain, nausea, emesis, constipation, diarrhea, hematochezia and/or melena. Review of Systems General: Reports: 10 or more systems reviewed and unremarkable except in HPI and below Medications/Allergies Home Medications Medication Instructions Recorded Confirmed Last Taken Type albuterol sulfate 90 mcg/actuation 2 puff inhalation Q4H PRN 09/20/21 06/28/22 Unknown History aerosol inhaler (Ventolin HFA) Shortness Of Breath amlodipine 5 mg tablet 5 mg PO QAM 09/20/21 06/28/22 06/28/22 History fluticasone furoate 200 1 inh inhalation QAM 09/20/21 06/28/22 06/28/22 History mcg-vilanterol 25 mcg/dose inhalation powder (Breo Ellipta) valsartan 320 1 tab PO QAM 09/20/21 06/28/22 06/28/22 History mg-hydrochlorothiazide 25 mg tablet ferrous sulfate 325 mg (65 mg 325 mg PO DAILY 06/13/22 06/28/22 06/28/22 History iron) tablet aspirin 81 mg tablet,delayed 81 mg PO DAILY 06/28/22 06/28/22 06/28/22 History release esomeprazole magnesium 40 mg 40 mg PO DAILY 06/28/22 06/28/22 06/28/22 History capsule,delayed release Allergies Allergy/AdvReac Type Severity Reaction Status Date / Time aspirin Allergy ADR-Vomitin Verified 06/28/22 14:40 g Current Medications Generic Name Dose Route Start Last Admin Trade Name Freq PRN Reason Stop Dose Admin Albuterol/Ipratropium 3 ml 06/28/22 19:30 06/29/22 01:17 Ipratropium-Albuterol 3 Ml Neb INHALATION 3 ml Q6H PRN Administration SHORTNESS OF BREATH Pantoprazole Sodium 40 mg 06/28/22 21:00 06/29/22 08:15 Pantoprazole 40 Mg Sdv IVP 40 mg Q12H JACOB Administration Sucralfate 1 gm 06/28/22 18:45 06/29/22 06:24 Sucralfate 1 Gm Tablet PO 1 gm AC&BEDTIME JACOB Administration PFSH Acute PFSH: Medical History Benign hypertension COPD (chronic obstructive pulmonary disease) Hypertension Surgical History History of abdominal aortic aneurysm repair Family History Father Hypertension Mother Hypertension Social History Smoking and tobacco status: current every day smoker Alcohol intake: former Substance/Drug Use: never Vitals/I&O/Wt Last Vital Signs Temp 98.1 F 06/29/22 04:15 Pulse 78 06/29/22 08:27 Resp 19 H 06/29/22 08:27 BP 142/71 06/29/22 08:00 Pulse Ox 96 06/29/22 08:27 O2 Del Method 06/29/22 08:27 06/28/22 06/29/22 06/29/22 22:59 06:59 14:59 Intake Total 350 / 350 1000 / 1000 Output Total 550 / 550 Balance -200 / -200 1000 / 1000 Weight last 48 hrs Weight 170 lb Physical Exam Narrative: General : Patient is well developed , no acute distress, oriented x3 Head : Normal cephalic, a-traumatic. Ears : Pinnae and external canal are normal. Hearing is normal. Eyes : PERRLA, Sclera and injection are normal. No conjunctival discharge. Nose : Mucous membranes are without erythema. Throat : buccal mucosa is normal, gums are without significant recession or hypertrophy. Lungs : Equal chest rise bilaterally, no use of accessory muscles, trachea is midline. Cor : Rate and rhythm are normal. Abdomen : Soft, ND, NT, no g/r/m Extremities : No edema, no cyanosis or clubbing, dorsalis pedis pulses are present bilaterally, non-tender to palpation of calves. Upper extremities are normal bilaterally. Back : non-tender to palpation, no CVA tenderness. Neuro : CN II - XII intact, Upper and lower extremities have equal and full strength Data : 06/29/22 04:56 06/29/22 04:56 A&P Assessment and plan (1) Anemia: Status: Acute (2) Non-ST elevation [place] (NSTEMI): Status: Acute Plan Patient is currently refusing EGD and colonoscopy. He has never had either before. He had an adequate hemoglobin raise after 2 units of PRBCs. He is also Hemoccult negative. As patient is refusing any intervention from co, he can have a regular diet. General surgery will sign off. Please reconsult if necessary. Medical management per hospitalist Coding Level of Care Code Acute Physician Credentialing Specialist for [facility] Diagnoses Anemia D64.9 Non-ST elevation TN (NSTEMI) I21.4
--- NOTE | 2022-06-29 12:37 | P.PN_ITS ---
Subjective Subjective: I discussed patient's CT scan findings with him, with his findings of pulmonary nodules, with highly suspicious features of malignancy, with evidence of metastasis radiographically, I discussed with him that cancer is a tissue diagnosis and we would need to have tissue sampling to diagnose with amira marks, he did not have any follow-up questions, I did ask him if he wanted me to talk to his 3 sons he did not want me to talk to sounds, but did want me to talk to his friend listed in the chart, I called the number but did not receive an answer. I also discussed with him his NSTEMI, will still awaiting an echocardiogram of the heart I also discussed with him his anemia, which is stable, but at this point we will proceed an EGD, unless his hemoglobin drops any further, he tells me he wants to go home, I advised that we need to monitor his hemoglobin, pursue further cardiac work-up, and likely can go home tomorrow. Vitals/I&O/Wt Last Vital Signs Temp 98.1 F 06/29/22 04:15 Pulse 76 06/29/22 11:53 Resp 15 06/29/22 11:53 BP 168/69 06/29/22 11:53 Pulse Ox 97 06/29/22 11:53 O2 Del Method 06/29/22 08:27 06/28/22 06/29/22 06/29/22 22:59 06:59 14:59 Intake Total 350 / 350 1000 / 1000 Output Total 550 / 550 Balance -200 / -200 1000 / 1000 Weight last 48 hrs Weight 77.111 kg Physical Exam Const: COMMON NORMALS: no acute distress and patient oriented x3 Resp: COMMON NORMALS: normal respiratory effort, No retractions, No use of accessory muscles and clear to auscultation bilaterally AUSCULTATION: clear to auscultation bilaterally Cardio: COMMON NORMALS: regular rate, regular rhythm, S1 normal heart sound present and S2 normal heart sound present RATE: regular rate RHYTHM: regular rhythm HEART SOUNDS: S1 normal heart sound present and S2 normal heart sound present GI: COMMON NORMALS: Normal to inspection, nondistended, normoactive bowel sounds present and non-tender Extremity: COMMON NORMALS: no pedal edema Neuro: COMMON NORMALS: patient oriented x3 Psych: COMMON NORMALS: mental status grossly normal Data : 06/29/22 04:56 06/29/22 04:56 A&P Assessment and plan (1) Anemia: Status: Acute (2) Non-ST elevation [place] (NSTEMI): Status: Acute (3) Lung cancer: Status: Acute Plan Acute on chronic anemia -Has evidence of anemia in the past hemoglobin 8.1 -No history of EGD, no history of colonoscopy, no history of transfusions, does take chronic iron -Likely GI bleed -Status post 2 units PRBC Plan -Currently no hemodynamic compromise monitor hemodynamics closely -Avoid anticoagulants -Monitor hemoglobin -Monitor for bloody or black stools -Protonix, Carafate -General surgery consulted for now can hold off on EGD as hemodynamically remained stable, hemoglobin remained stable, has evidence of NSTEMI NSTEMI -No cardiovascular history -Is a smoker -No chest pain complaints -Baseline troponin 128 -Serial EKGs no acute ST-T wave changes, serial troponins 6-hour troponin 147.8, with a delta of 19.8, telemetry monitoring -Has received aspirin emergency room, statin, her old off and further aspirin given anemia -Monitor for chest pain -Etiology unclear, possibly type II NSTEMI related to supply demand ischemia related to anemia however cannot rule out underlying cardiac etiology given age, smoking history, might require stress test once anemia has been appropriately evaluated -Cardiac echo pending -DNR/DNI -SCDs for DVT prophylaxis Radiographic evidence of lung cancer, with radiographic evidence of metastasis Multiple spiculated nodules in the right upper lobe, measuring 3.7 cm, highly suspicious, with 2 hypodense nodules in the liver are suspicious for metastatic disease, enlarged mediastinal and right hilar lymph nodes concerning for metastatic disease, interstitial thickening in the right upper lobe highly suspicious for lymphangitic spread Attestations Medical Necessity Statement*: Patient requires hospitalization for NSTEMI, acute on chronic anemia, newly diagnosed lung cancer Coding Level of Care Code Acute Habilitation Training Specialist for [facility] Fwd Diagnoses Anemia D64.9 Non-ST elevation [place] (NSTEMI) I21.4 Lung cancer C34.90
[2022-06-29] MEDS: potassium chloride ER 20 mEq Tablet 40 MEQ PO (13:25)
[2022-06-29] MEDS: FUROsemide 10 mg/mL SDV 4mL 40 MG IVP (13:25)
[2022-06-29 14:58] LABS: Troponin T (5th) Once 218 ng/L (0-15)
--- NOTE | 2022-06-29 17:47 | DCPLANNER ---
manager engine had message to schedule a follow up appointment for patient with Dr. Andrew at general surgery. Patient was admitted to hospital and Dr. Andrew was consulted on patient while patient was admitted.
--- NOTE | 2022-06-29 19:30 | USCV_ITS ---
Dave Qureshi Age: 72 Gender: M : 1950 Exam Date: 06/29/2022 07:28 Ordering Phys: Bharat Carter MD Technologist: Morro Busby [place]am [place] [facility] [place]: nstemi BP: / HR: 83 Rhythm: Sinus Technical Quality: Suboptimal MEASUREMENTS (Male / Female) Normal Values 2D ECHO LV Diastolic Diameter PLAX 4.5 cm 4.2 - 5.9 / 3.9 - 5.3 cm LV Systolic Diameter PLAX 3.3 cm IVS Diastolic Thickness 1.1 cm 0.6 - 1.0 / 0.6 - 0.9 cm IVS Systolic Thickness 1.6 cm LVPW Diastolic Thickness 1.3 cm 0.6 - 1.0 / 0.6 - 0.9 cm LVPW Systolic Thickness 1.5 cm LVOT Diameter 2.1 cm LV Ejection Fraction 2D Teich 53.3 % LV Ejection Fraction MOD 2C 57.2 % LV Ejection Fraction 2C AL 58.5 % LA Diameter 4.0 cm IVC Diameter 1.3 cm M-MODE Aortic Annulus Diameter 3.5 cm LA Ao Ratio MM 1.2 MV E Point Septal Separation 1.0 cm DOPPLER AV Peak Velocity 134.0 cm/s LVOT Peak Velocity 117.0 cm/s AV Area Cont Eq vti 2.8 cm squared AV Area Cont Eq pk 3.0 cm squared MV Area PHT 5.0 cm squared Mitral E to A Ratio 1.3 MV E' Velocity 61.5 cm/s Mitral E to MV E' Ratio 13.3 Mitral E to LV E' Lateral Ratio 14.8 Mitral E to LV E' Septal Ratio 12.1 TR Peak Velocity 145.8 cm/s TR Peak Gradient 8.5 mmHg TV Peak E Velocity 115.0 cm/s Right Atrial Pressure 3.0 mmHg Pulmonary Artery Systolic Pressu 11.5 mmHg PV Peak Velocity 100.0 cm/s FINDINGS Left Ventricle Normal left ventricular size, systolic function and wall thickness, with no regional wall motion abnormalities. Grade I/IV diastolic dysfunction (abnormal relaxation filling pattern), normal to mildly elevated filling pressures. Left ventricular ejection fraction is estimated at 55 %. Right Ventricle Normal right ventricular size and systolic function. Normal right ventricular systolic pressure. Right Atrium The right atrium is normal in size. Left Atrium The left atrium is normal in size. Mitral Valve Trace mitral valve regurgitation. Structurally normal mitral valve. Aortic Valve Structurally normal aortic valve without significant sclerosis or stenosis. There is no aortic regurgitation. Tricuspid Valve Structurally normal tricuspid valve without significant stenosis or regurgitation. Pulmonary artery systolic pressure is normal. Pulmonic Valve Pulmonic valve not well visualized. Pericardium Normal pericardium without effusion. Aorta Normal ascending aorta dimension. IVC The inferior vena cava pulmonary and hepatic veins appear normal. CONCLUSIONS Normal left ventricular size, systolic function and wall thickness, with no regional wall motion abnormalities. Grade I/IV diastolic dysfunction (abnormal relaxation filling pattern), normal to mildly elevated filling pressures. Left ventricular ejection fraction is estimated at 55 %. Trace mitral valve regurgitation. Structurally normal mitral valve. Dr. Felix Andrews MD (Electronically Signed) Final Date: 29 June 2022 11:51 S
[2022-06-29] MEDS: atorvastatin 40 mg Tablet PO (20:57)
[2022-06-30 04:00] VITALS: BP 129/62; PULSE 79; RESP 18; TEMP 36.7; O2SAT 94
[2022-06-30 04:22] LABS: Basophils % 0.4 %; Eosinophils # 0.3 10^3/uL (0.0-0.8); Eosinophils % 2.9 %; Hematocrit 23.3 % (42.0-52.0); Hemoglobin 7.9 g/dL (11.7-16.6); Lymphocytes # 0.9 10^3/uL (0.8-4.8); Lymphocytes % 10.4 %; Mean Corpuscular HGB Conc 33.9 g/dL (30.0-36.0); Mean Corpuscular Hemoglobin 29.9 pg (28.0-34.0); Mean Corpuscular Volume 88.3 fl (80-94); Mean Platelet Volume 11.6 fL (7.4-10.4); Monocytes # 0.9 10^3/uL (0.2-0.9); Monocytes % 9.9 %; Neutrophils # 6.87 10^3/uL (1.8-7.7); Neutrophils % 76.1 %; Nucleated Red Blood Cells % 0 %; Platelet Count 312 10^3/cmm (130-400); Red Blood Count 2.64 10^6/uL (4.1-5.3); Red Cell Distribution Width 17.4 % (12.1-15.1)
[2022-06-30 04:56] LABS: Alanine Aminotransferase 7 U/L (0-41); Albumin Level 2.1 g/dL (3.5-5.2); Alkaline Phosphatase 97 IU/L (40-130); Anion Gap 14.2 (5-19); Aspartate Amino Transferase 16 U/L (0-40); Blood Urea Nitrogen 21 mg/dL (8-23); Calcium 8.5 mg/dL (8.5-10.5); Carbon Dioxide 21 mmol/L (22-29); Chloride 105 mmol/L (98-107); Globulin 2.9 g/dL (1.3-4.6); Glucose 94 mg/dL (65-115); Magnesium 1.8 mg/dL (1.7-2.3); Osmolality Calculated 285 mOsm/kg (285-295); Potassium 4.2 mmol/L (3.5-5.1); Sodium 136 mmol/L (136-145); Total Bilirubin 0.4 mg/dL (0.15-1.2)
[2022-06-30 05:25] VITALS: PULSE 71
[2022-06-30] MEDS: sucralfate 1 gm Tablet PO (06:28)
[2022-06-30 07:26] VITALS: BP 152/81; PULSE 68; RESP 18; O2SAT 95
[2022-06-30 08:00] VITALS: PULSE 74; RESP 18; O2SAT 98
[2022-06-30 10:55] VITALS: PULSE 74; RESP 18; O2SAT 98
--- NOTE | 2022-06-30 10:57 | P.DS_ITS ---
Discharge Providers Date of Admission: 06/28/22 14:50 Date of Discharge: June 30, 2022 Attending Provider at Admission: Bharat Carter MD Attending Provider at Discharge: Bharat Carter MD Diagnoses at Discharge Discharge Diagnosis (1) Anemia: Status: Acute (2) Non-ST elevation HI (NSTEMI): Status: Acute (3) Lung cancer: Status: Acute Reason for Visit Reason for Visit: Loss of blood Hospital Course Hospital Course Dave Qureshi is a 72 year old male with a past medical history of hypertension, COPD, current smoker, who presents [facility] due to fatigue, malaise, lightheadedness.? Patient tells me that he saw his outpatient physician for fatigue, malaise, lightheadedness, weakness, they did blood work and they told him to come to the emergency room.? Patient was admitted to [facility] for fatigue, weakness, lightheadedness secondary to acute on chronic anemia, NSTEMI, and evidence of lung cancer On admission patient was found to have a hemoglobin of 6.2, has a history of chronic anemia, no history of EGD or colonoscopy in the past, no history of transfusion, does take chronic iron. Likely acute on chronic anemia secondary to slow GI bleed, no hemodynamic compromise, he required 2 units PRBC, and clinically monitored. No bloody or black stools reported, managed with Protonix, Carafate, general surgery was consulted for EGD however patient declined. Hemoglobin morning of 06/30/2022 was 7.9 I had ordered another unit of PRBC, but patient wanted to leave AGAINST MEDICAL ADVICE, did not want to have blood, did not want to have any further evaluation, did not want to have a EGD. I did discuss my concerns for acute anemia, morbidity and mortality associated, associated to hemorrhagic shock, significant mortality, morbidity mortality associated he voiced understanding all questions answered, declined any further testing, declined any further blood products, wanted to remain a DNR/DNI, just wanted to be remain comfortable and wanted to go home. After discussing the risks and benefits, he voiced understanding, all questions answered, opportunity to answer questions, he went home as per his choice. I have discharged him on Protonix, Carafate. I did discuss with him that if he were to develop bloody or black stools to come to the emergency room immediately. But he tells me that at that point he just wants to pass away comfortably, he does not want to have any interventions. I did offer hospice to him, but he declines. In terms of patient's NSTEMI, no cardiovascular history, is a smoker, baseline troponin 120, no acute ST-T wave changes, did have a positive delta troponin of 19.8, repeat troponin was 218. He denied any chest pain, palpitations but did complain of shortness of breath. Etiology of NSTEMI is likely multifactorial, from type II NSTEMI supply demand ischemia from anemia as above. However I cannot rule out underlying cardiac etiology thus he required further evaluation and testing. Cardiac echocardiogram as below, Normal left ventricular size, systolic function and wall ?thickness, with no regional wall motion abnormalities. Grade ?I/IV diastolic dysfunction (abnormal relaxation filling ?pattern), normal to mildly elevated filling pressures. Left ?ventricular ejection fraction is estimated at 55 %. ?Trace mitral valve regurgitation. Structurally normal mitral ?valve. Unfortunately I could not place patient on any blood thinners, given his acute anemia, including antiplatelet therapy. He has a significant risk of bleeding especially as he does not want to have any further evaluation. In addition I had recommended for cardiac stress testing before performing an EGD. As he has a significant risk of adverse cardiac event during the EGD. I did discuss stress testing however patient declines further stress testing. He does not want to have any cardiac evaluation, denies any new cardiac consult. He does not want to have any further cardiac testing. I discussed his high risk of developing an acute HI, morbidity and mortality associated, he voiced understanding, all questions answered, declined any further testing, declined any further cardiac evaluation, denied any further medications. He tells me that he just wants to be comfortable, he wants to go home, if he were to pass away from a adverse cardiac event he is okay with that. Discussed the risks and benefits, opportunity to answer questions, he voiced understanding, all questions answered, agreed to proceed. I have not discharged him on aspirin, given his risk of bleeding as above. Discharged him on statin and metoprolol. Advised if he were to have any recurrent chest pain or HI to go to the emergency room. But he tells me that at that point he does not want to have any further testing he does not want to have any angiogram he just wants to remain comfortable. Discussed risk and benefits he voiced restarting colchicine answered, agreed to proceed Patient was also found to have radiographic evidence of lung cancer with radiographic evidence of metastasis CT scan showed Multiple spiculated nodules in the right upper lobe, measuring 3.7 cm, highly suspicious, with 2 hypodense nodules in the liver are suspicious for metastatic disease, enlarged mediastinal and right hilar lymph nodes concerning for metastatic disease, interstitial thickening in the right upper lobe highly suspicious for lymphangitic spread -I had a detailed discussion with patient about his radiographic findings, on multiple occasions, he voiced understanding, all questions answered, -He tells me that his mother from lung cancer, and he does not want to have any further testing, no further evaluation he does not want to have any treatment he tells me that frankly if he passes away he is okay with that -I did advise him of my concern of the significant morbidity and mortality associated with his complications as above, my worries about aggressive interventions that would be done if he were to come in with a GI bleed or an HI given his underlying lung cancer, what would he is wishes to be then if you were not able to speak for himself if he were to have a complication as above -He tells me that at that point he does not want to have any interventions, no interventions for GI bleed, no interventions of an HI, no aggressive interventions, he just wants to remain comfortable, he wants us to ease his pain eases suffering allow him to pass away comfortably, he wants to remain a DNR/DNI -I did offer him hospice, as a way to decrease his pain, decrease his suffering, allow him to remain comfortable however he declines -He tells me he just wants to go home and be comfortable, he does not want to have any further evaluation, no further testing, does not want have oncology consultation, -I did have a detailed discussion with him that cancer is a tissue diagnosis, certainly these features could be benign nodules, possible fungal infection,, but he does smoke, history of smoking, family history of lung cancer, and the CT scan does show quite worrisome features however again cancer is a tissue diagnosis. He does not want to have any tissue sampling, does not want to have any further testing -Patient made adamant to me that he does not want to have any aggressive interventions, does not want to have any aggressive testing, he just wants to remain comfortable -Patient does have 3 sons, I did offer many times to talk to sounds, to get their input, to let them know about what is going on however he declines, he did have a close family friend, I did try to reach out to her on 06/29/2022, no one answered. I did offer to reach out to her before discharge however he declined Physical Exam Const: COMMON NORMALS: no acute distress and patient oriented x3 Resp: COMMON NORMALS: normal respiratory effort, No retractions, No use of accessory muscles and clear to auscultation bilaterally AUSCULTATION: clear to auscultation bilaterally Cardio: COMMON NORMALS: regular rate, regular rhythm, S1 normal heart sound present and S2 normal heart sound present RATE: regular rate RHYTHM: regular rhythm HEART SOUNDS: S1 normal heart sound present and S2 normal heart sound present GI: COMMON NORMALS: Normal to inspection, nondistended, normoactive bowel sounds present and non-tender Extremity: COMMON NORMALS: no pedal edema Neuro: COMMON NORMALS: patient oriented x3 Psych: COMMON NORMALS: mental status grossly normal Discharge Data Studies Completed and Pending Completed Studies During Hospitalization Category Date Time Status CT chest abdomen pelvis [[place] [id number] Cat Scan 06/28/22 15:38 Completed ] Urgent XR KUB portable [id number] Stat Exams 06/28/22 14:49 Completed XR chest 1V portable [id number] Stat Exams 06/28/22 14:49 Completed CV. echo complete* [id number] Routine Ultrasound 06/29/22 19:30 Completed Pending at discharge Category Date Time Status Sestamibi Stress Test Request Routine Exams 06/30/22 08:22 Ordered Clostridioides Difficile PCR Routine Lab 06/28/22 14:49 Ordered Complete Blood Count w/Auto AM LABS Lab 07/01/22 04:00 Ordered Comprehensive Metabolic Panel AM LABS Lab 07/01/22 04:00 Ordered Enteric Bacterial Panel by PCR Routine Lab 06/28/22 14:49 Ordered Enteric Parasite Panel by PCR Routine Lab 06/28/22 14:49 Ordered Immunochemical Fecal OCB Routine Lab 06/28/22 14:49 Ordered Lactoferrin Routine Lab 06/28/22 14:49 Ordered Leukocyte Reduced RBC Routine Lab 06/28/22 11:25 Results Magnesium AM LABS Lab 07/01/22 04:00 Ordered Phosphorus AM LABS Lab 07/01/22 04:00 Ordered Type and Screen Stat Lab 06/28/22 11:25 Results NM anna perf SPECT r/s* [id number] Routine Nuc Med 06/30/22 08:22 Ordered Radiology Impressions Chest X-Ray 06/28/22 14:49 IMPRESSION: 1. 3 cm focal density within the upper lobe of the right lung near the lateral pleural. This could represent focal pneumonia, or mass. This is a change since the previous study. 2. Pulmonary hyperinflation which might indicate COPD. KUB X-Ray 06/28/22 14:49 IMPRESSION: 1. No acute abdominal process. 2. Small calcifications noted over both kidneys that could represent renal stones. Additional nonacute minor findings as above. Chest/Abdomen/Pelvis CT 06/28/22 15:38 IMPRESSION: 1. Multiple spiculated nodules in the right upper lobe, the largest measuring 3.7 cm. Highly suspicious nodule(s). Consider non-emergent PET/CT, IMPRESSION: 1. Two hypodense nodules in the liver are suspicious for metastatic disease given the findings in the chest. 2. 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 3. Aortobifemoral arterial graft. Laboratory Results WBC 9.0 10^3/uL (4.0-10.0) 06/30/22 04:02 RBC 2.64 10^6/uL (4.1-5.3) L 06/30/22 04:02 Hgb 7.9 g/dL (11.7-16.6) L 06/30/22 04:02 Hct 23.3 % (42.0-52.0) L 06/30/22 04:02 MCV 88.3 fl (80-94) D 06/30/22 04:02 MCH 29.9 pg (28.0-34.0) 06/30/22 04:02 MCHC 33.9 g/dL (30.0-36.0) D 06/30/22 04:02 RDW 17.4 % (12.1-15.1) H 06/30/22 04:02 Plt Count 312 10^3/cmm (130-400) 06/30/22 04:02 MPV 11.6 fL (7.4-10.4) H 06/30/22 04:02 Neut % (Auto) 76.1 % 06/30/22 04:02 Lymph % (Auto) 10.4 % 06/30/22 04:02 [place] % (Auto) 9.9 % 06/30/22 04:02 Eos % (Auto) 2.9 % 06/30/22 04:02 Baso % (Auto) 0.4 % 06/30/22 04:02 Reticulocyte % (Auto) 10.1 % (0.5-2.0) H 06/28/22 11:25 Neut # (Auto) 6.87 10^3/uL (1.8-7.7) 06/30/22 04:02 Lymph # (Auto) 0.9 10^3/uL (0.8-4.8) 06/30/22 04:02 [place] # (Auto) 0.9 10^3/uL (0.2-0.9) 06/30/22 04:02 Eos # (Auto) 0.3 10^3/uL (0.0-0.8) 06/30/22 04:02 Baso # (Auto) 0.0 10^3/uL (0.0-0.1) 06/30/22 04:02 Nucleated RBC % (auto) 0 % 06/30/22 04:02 Nucleated RBCs # 0.0 /100WBC 06/30/22 04:02 PT 13.60 SECONDS (12.1-14.9) 06/28/22 11:25 INR 1.01 (0.8-1.2) 06/28/22 11:25 APTT 31.4 SECONDS (23.9-36.7) 06/28/22 11:25 Sodium 136 mmol/L (136-145) 06/30/22 04:02 Potassium 4.2 mmol/L (3.5-5.1) 06/30/22 04:02 Chloride 105 mmol/L (98-107) 06/30/22 04:02 Carbon Dioxide 21 mmol/L (22-29) L 06/30/22 04:02 Anion Gap 14.2 (5-19) 06/30/22 04:02 BUN 21 mg/dL (8-23) 06/30/22 04:02 Creatinine 2.4 mg/dL (0.7-1.2) H 06/30/22 04:02 GFR Calculation Not Reportable 06/30/22 04:02 Glucose 94 mg/dL (65-115) 06/30/22 04:02 Calculated Osmolality 285 mOsm/kg (285-295) 06/30/22 04:02 Calcium 8.5 mg/dL (8.5-10.5) 06/30/22 04:02 Phosphorus 3.0 mg/dL (2.5-4.5) 06/30/22 04:02 Magnesium 1.8 mg/dL (1.7-2.3) 06/30/22 04:02 Iron 66 ug/dL (59-158) 06/28/22 14:27 Ferritin 59 ng/mL (30-400) 06/28/22 14:27 Total Bilirubin 0.4 mg/dL (0.15-1.2) 06/30/22 04:02 GGT 16 U/L (8-61) 06/28/22 14:27 AST 16 U/L (0-40) 06/30/22 04:02 ALT 7 U/L (0-41) 06/30/22 04:02 Alkaline Phosphatase 97 IU/L (40-130) 06/30/22 04:02 Lactate Dehydrogenase 206 U/L (135-225) 06/28/22 14:27 Troponin T Gen 5 ng/L 218 ng/L (0-15) H* 06/29/22 13:58 Troponin T Baseline 128 ng/L (0-15) H* 06/28/22 11:25 Troponin T 120 Minute 129.8 ng/L (0-15) H 06/28/22 16:56 Delta Troponin T 1.8 ABS# (0-10) 06/28/22 16:56 Troponin T Hi Sens 6Hr 147.8 ng/L (0-15) H 06/28/22 21:50 Troponin T Hi Sens 6Hr Delta 19.8 ng/L (0-12) H* 06/28/22 21:50 NT-Pro-B Natriuret Pep 56239 pg/mL (0-125) H 06/28/22 14:27 Total Protein 5.0 g/dL (6.6-8.7) L 06/30/22 04:02 Albumin 2.1 g/dL (3.5-5.2) L 06/30/22 04:02 Globulin 2.9 g/dL (1.3-4.6) 06/30/22 04:02 Lipase 32 U/L (13-60) 06/28/22 14:27 Vitamin B12 910 pg/mL (232-1245) 06/28/22 14:27 Folate 19.8 ng/mL (4.5-32.2) 06/28/22 16:00 TSH 3.07 uIU/mL (0.27-4.20) 06/28/22 14:27 Blood Type O Positive 06/28/22 11:25 Rho(D) Type Positive 06/28/22 11:25 Antibody Screen Negative 06/28/22 11:25 Crossmatch See Detail 06/28/22 11:25 Vitals Last Vital Signs Temp 98.1 F 06/30/22 04:00 Pulse 74 06/30/22 10:55 Resp 18 06/30/22 10:55 BP 152/81 06/30/22 07:26 Pulse Ox 98 06/30/22 10:55 O2 Del Method 06/30/22 08:00 O2 Flow Rate 94 06/29/22 23:47 Discharge Plan Discharge Patient Disposition: Home Condition: Stable Prescriptions: New atorvastatin 40 mg Tablet 40 mg PO BEDTIME 30 Days Qty: 30 0RF sucralfate 1 gram Tablet 1 g PO AC&BEDTIME 30 Days Qty: 60 0RF metoprolol tartrate 25 mg Tablet 12.5 mg PO BID@0900,2100 30 Days Qty: 30 0RF Protonix 40 mg tablet,delayed release (DR/EC) 40 mg PO BID 30 Days Qty: 60 0RF Continued ferrous sulfate 325 mg (65 mg iron) tablet 325 mg PO DAILY amlodipine 5 mg tablet 5 mg PO QAM albuterol sulfate [Ventolin HFA] 90 mcg/actuation HFA aerosol inhaler 2 puff INHALATION Q4H PRN (Reason: Shortness Of Breath) fluticasone furoate-vilanterol [Breo Ellipta] 200-25 mcg/dose blister with device 1 inh INHALATION QAM Discontinued valsartan-hydrochlorothiazide 320-25 mg tablet 1 tab PO QAM esomeprazole magnesium 40 mg capsule,delayed release(DR/EC) 40 mg PO DAILY aspirin [Aspir-81] 81 mg Tablet,Delayed Release (Dr/Ec) 81 mg PO DAILY Discharge Orders: Discharge Order (Routine); Ordered 06/30/22 Ordered By: Bharat Carter Discharge Diet: Advance as tolerated Discharge Activity: Increase activity as tolerated Patient Instructions: Anemia, Metoprolol (By mouth), Sucralfate (By mouth) (Carafate), Atorvastatin (By mouth) (Lipitor), Pantoprazole (By mouth) (Protonix), Heart Attack (DC), Opioid Safety Activity Restrictions/Additional Instructions: Our cyanide case hardener will have you follow-up with Dr. Andrew in the next few days. You would be expected to have a phone call with our cyanide case hardener who will put you on the schedule. You can expect a call from us in the next 2-3 days. If you don't hear from us, call us back in the emergency room at [phone]. -Please follow-up with your primary care provider in 1 week -If you have chest pain, palpitations please go to the emergency room Discharge Attestations Time Spent in Discharge Care*: less than 30 min Quality Metrics Clinical Quality Measures [ No reported AMI, CVA or VTE this stay] Coding Level of Care Code Acute Chg FW DC note Diagnoses Anemia D64.9 Non-ST elevation HI (NSTEMI) I21.4 Lung cancer C34.90
== END 2022-06-30 11:05 | disposition home or self-care (01) | DRG 811 ==
LOC: ER 14:44 → MEDSURG 16:30
PROVIDERS: Physician Assistant; Admitting Provider Family Medicine; Emergency Provider Emergency Medicine; Visit Provider Family Medicine
DX: D64.9 Anemia, unspecified (principal); I21.A1 Myocardial infarction type 2; I10 Essential (primary) hypertension; J43.2 Centrilobular emphysema; F17.200 Nicotine dependence, unspecified, uncomplicated; F10.21 Alcohol dependence, in remission; R91.8 Other nonspecific abnormal finding of lung field; Z66 Do not resuscitate; Z79.51 Long term (current) use of inhaled steroids; Z80.1 Family history of malignant neoplasm of trachea, bronchus and lung
CPT/HCPCS: 36415; 36430; 71045; 71250; 74018; 74176; 80053; 80503; 82607; 82728; 82746; 82977; 83540; 83615; 83690; 83735; 83880; 84100; 84443; 84484; 85014; 85018; 85025; 85045; 85610; 85730; 86850; 86900; 86920; 93005; 93306; 94640; 94664; 96374; 99291; C9113; J1940; P9016